=== PATIENT | female | born 1980 | race African-American/Black ===

== ENCOUNTER 2022-09-09 15:07 | Emergency (ER) | payer OTHER ==
[~2022-09-09] VITALS: Ht 167.6 cm; Wt 80.0 kg
[2022-09-09 15:18] VITALS: BP 143/98
[2022-09-09] MEDS ORDERED: ACETAMINOPHEN 325MG TABLET PO ONE (19:00)
== END 2022-09-09 20:00 | disposition home or self-care (01) ==
LOC: ER 15:07
DX: J02.9 Acute pharyngitis, unspecified (principal); F17.210 Nicotine dependence, cigarettes, uncomplicated
CPT/HCPCS: 87070; 87430; 99283